=== PATIENT | female | born 1950 | race Caucasian/White ===

== ENCOUNTER → 2016-09-10 | Outpatient (CLI) | payer OTHER, MEDICARE | LOC: FIMAGING 07:52 | PROVIDERS: ATTEND Internal Medicine | DX: Z12.31 Encounter for screening mammogram for malignant neoplasm of breast (principal) | CPT/HCPCS: G0202 ==

== ENCOUNTER → 2017-09-12 | Outpatient (CLI) | payer OTHER, MEDICARE | LOC: FIMAGING 13:46 | PROVIDERS: ATTEND Internal Medicine | DX: Z12.31 Encounter for screening mammogram for malignant neoplasm of breast (principal) ==

== ENCOUNTER → 2017-11-14 | Outpatient (CLI) | payer OTHER, MEDICARE | LOC: BMCIMAGING 11:47 | PROVIDERS: ATTEND Internal Medicine | DX: M16.0 Bilateral primary osteoarthritis of hip (principal) ==

== ENCOUNTER → 2018-05-09 | Outpatient (CLI) | payer OTHER, MEDICARE | LOC: BMCIMAGING 12:10 | PROVIDERS: ATTEND Internal Medicine | DX: M50.11 Cervical disc disorder with radiculopathy, high cervical region (principal); M50.33 Other cervical disc degeneration, cervicothoracic region ==